=== PATIENT | female | born 1965 | race Two or more races ===

== ENCOUNTER → 2017-05-11 | Outpatient (CLI) | payer OTHER ==
[~2017-05-11] MED LIST: OMEP-110 PO
[2017-05-11 17:17] LABS: BLOOD UREA NITROGEN 11 mg/dL (7-18)
== END | disposition home or self-care (01) ==
LOC: STAR 16:00
PROVIDERS: ATTEND Obstetrics & Gynecology Gynecology
DX: Z01.818 Encounter for other preprocedural examination (principal); N39.3 Stress incontinence (female) (male)
CPT/HCPCS: 36415; 80048; 81003; 85025

== ENCOUNTER 2017-05-25 05:36 | Day surgery (SDC) | payer OTHER ==
[~2017-05-25] VITALS: Ht 154.9 cm; Wt 72.8 kg
[2017-05-25] MEDS ORDERED: LACTATED RINGERS 1,000 ML IV SCH (06:07)
[2017-05-25 06:13] VITALS: BP 105/56
[2017-05-25] MEDS ORDERED: EPINEPHRINE 1 MG/ML, 1ML ONE (06:49)
[2017-05-25] MEDS ORDERED: LIDOCAINE/PF 1%, 30ML ONE (06:49)
[2017-05-25] MEDS ORDERED: THROMBIN 5,000 UNIT VIAL TP ONE (06:49)
[2017-05-25] MEDS ORDERED: FLUORESCEIN SODIUM 500 MG/5 ML ONE (06:49)
[2017-05-25] MEDS ORDERED: NEOMY/POLYMYXIN B GU IRR. 1 ML IRRIG ONE (06:50)
[2017-05-25] MEDS ORDERED: SILVER NITRATE STICK TP ONE (06:50)
[2017-05-25] MEDS ORDERED: MIDAZOLAM 1 MG/ML, 2ML ONE (07:14)
[2017-05-25] MEDS ORDERED: KETAMINE 10 MG/ML, 20ML ONE (07:14)
[2017-05-25] MEDS ORDERED: FENTANYL PF 250 MCG/5ML ONE (07:14)
[2017-05-25] MEDS ORDERED: MEPERIDINE/PF 25MG/0.5ML IVPush PRN (08:30)
[2017-05-25] MEDS ORDERED: ACETAMINOPHEN 325 MG TABLET PO PRN (08:30)
[2017-05-25] MEDS ORDERED: PROMETHAZINE 25 MG/ML, 1ML IV PRN (08:30)
[2017-05-25] MEDS ORDERED: OXYcodone 5 MG/5 ML ORAL.SOL UDC PO PRN (08:30)
[2017-05-25] MEDS ORDERED: HYDROmorphone 1 MG/ML, 1ML IV PRN (08:30)
[2017-05-25] MEDS ORDERED: FENTANYL PF 100 MCG/2ML IV PRN (08:30)
[2017-05-25] MEDS ORDERED: ACETAMINOPHEN 650 MG/20.3 ML UDC ONE (08:33)
[2017-05-25] MEDS ORDERED: OXYcodone 5 MG/5 ML ORAL.SOL UDC ONE (08:34)
[2017-05-25] MEDS ORDERED: ROCURONIUM 10 MG/ML ONE (16:39)
[2017-05-25] MEDS ORDERED: GLYCOPYRROLATE 0.2MG/1ML ONE (16:39)
[2017-05-25] MEDS ORDERED: SUCCINYLCHOLINE 20 MG/ML, 10ML ONE (16:39)
[2017-05-25] MEDS ORDERED: KETOROLAC 30 MG/1 ML ONE (16:39)
[2017-05-25] MEDS ORDERED: NEOSTIGMINE 1 MG/ML, 10ML ONE (16:39)
[2017-05-25] MEDS ORDERED: PROPOFOL 10 MG/ML, 20ML ONE (16:39)
[2017-05-25] MEDS ORDERED: CEFAZOLIN 1,000 MG ONE (16:39)
[2017-05-25] MEDS ORDERED: EPHEDRINE 50 MG/ML, 1ML ONE (16:39)
== END 2017-05-25 14:00 ==
LOC: OUT 05:36
PROVIDERS: ATTEND Obstetrics & Gynecology Gynecology
DX: N39.3 Stress incontinence (female) (male) (principal); K21.9 Gastro-esophageal reflux disease without esophagitis; Z86.73 Personal history of transient ischemic attack (TIA), and cerebral infarction without residual deficits; Z87.39 Personal history of other diseases of the musculoskeletal system and connective tissue
CPT/HCPCS: 57288; 93005; C1771; J0171; J0330; J0690; J1885; J2250; J2704; J2710; J3010; J3490; J7120

== ENCOUNTER 2018-07-12 12:00 | Emergency (ER) | payer OTHER ==
[~2018-07-12] VITALS: Ht 152.4 cm; Wt 72.0 kg
[2018-07-12] MEDS ORDERED: MECLIZINE CHEWABLE 25 MG TAB PO ONE (13:00)
[2018-07-12] MEDS ORDERED: MECLIZINE CHEWABLE 25 MG TAB ONE (13:14)
[2018-07-12 13:17] LABS: BASOPHILS # (AUTO) 0.03 x10^3/uL (0-0.1); BASOPHILS % (AUTO) 1 % (0-1); EOSINOPHILS # (AUTO) 0.08 x10^3/uL (0-0.4); EOSINOPHILS % (AUTO) 1 % (1-7); LYMPHOCYTES # (AUTO) 1.38 x10^3/uL (1-3.4); LYMPHOCYTES % (AUTO) 22 % (22-44); MD NO; MEAN CORPUSCULAR HEMOGLOBIN 28.9 pg (27.0-34.8); MEAN CORPUSCULAR HGB CONC 34.4 g/dL (32.4-35.8); MEAN PLATELET VOLUME 7.7 fL (7.4-10.4); MONOCYTES # (AUTO) 0.28 x10^3/uL (0.2-0.8); MONOCYTES % (AUTO) 4 % (2-9); NEUTROPHILS # (AUTO) 4.61 x10^3/uL (1.8-6.8); NEUTROPHILS % (AUTO) 72 % (42-75); PLATELET COUNT 408 x10^3/uL (130-400); RED BLOOD COUNT 4.72 x10^6/uL (3.82-5.3); RED CELL DISTRIBUTION WIDTH 13.8 % (9.6-15.2)
[2018-07-12 13:27] LABS: ALANINE AMINOTRANSFERASE 22 U/L (12-78); ANION GAP 8 mmol/L (5-15); CALCIUM 9.3 mg/dL (8.5-10.1); CHLORIDE 108 mmol/L (98-107); CREATININE 0.79 mg/dL (0.55-1.02)
[2018-07-12 13:29] LABS: ALKALINE PHOSPHATASE 85 U/L (45-117); BILIRUBIN,TOTAL 0.4 mg/dL (0.2-1.0); TOTAL PROTEIN 7.8 g/dL (6.4-8.2)
[2018-07-12] MEDS ORDERED: SODIUM CHLORIDE 0.9% 1,000 ML IV SCH (13:30)
[2018-07-12 14:00] LABS: TROPONIN I < 0.015 ng/mL (0.000-0.045)
[2018-07-12] MEDS ORDERED: DIAZEPAM 5 MG TABLET PO ONE (15:30)
[2018-07-12 16:45] VITALS: BP 125/81
== END 2018-07-12 16:52 | disposition home or self-care (01) ==
LOC: ED 13:45
DX: R06.02 Shortness of breath (principal); F41.9 Anxiety disorder, unspecified; R42 Dizziness and giddiness
CPT/HCPCS: 36415; 70450; 71045; 80053; 84484; 85025; 85379; 93005; 96360; 99285; J7030